=== PATIENT | female | born 1980 | race Caucasian/White ===

== ENCOUNTER 2019-11-02 12:37 | Emergency (ER) | payer BC ==
[2019-11-02 12:58] VITALS: BP 128/82
[2019-11-02 13:04] LABS: ABSOLUTE BASOPHILS # (AUTO) 0.1 10^3/uL (0.0-0.2); ABSOLUTE EOSINOPHILS # (AUTO) 0.2 10^3/uL (0.0-0.6); ABSOLUTE LYMPHOCYTES (AUTO) 2.4 10^3/uL (0.5-4.7); ABSOLUTE MONOCYTES (AUTO) 0.7 10^3/uL (0.1-1.4); ABSOLUTE NEUT (AUTO) 6.1 10^3/uL (1.7-8.2); BASOPHILS % (AUTO) 1.3 % (0-2); EOSINOPHILS % (AUTO) 2.2 % (0-6); HEMATOCRIT 46.3 % (36.0-47.0); HEMOGLOBIN 16.2 g/dL (12.0-15.5); MEAN CORPUSCULAR HEMOGLOBIN 31.2 pg (27.0-33.4); MEAN CORPUSCULAR HGB CONC 34.9 g/dL (32.0-36.0); MEAN CORPUSCULAR VOLUME 90 fl (80-97); MONOCYTES % (AUTO) 7.4 % (3-13); PLATELET COUNT 287 10^3/uL (150-450); RED BLOOD COUNT 5.17 10^6/uL (3.72-5.28); RED CELL DISTRIBUTION WIDTH 13.3 % (11.5-14.0); SEGMENTED NEUTROPHILS % (AUTO) 64.1 % (42-78); TOTAL CELLS COUNTED % (AUTO) 100 %; WHITE BLOOD COUNT 9.6 10^3/uL (4.0-10.5)
[2019-11-02 13:21] LABS: ALBUMIN 4.9 g/dL (3.5-5.0); ALKALINE PHOSPHATASE 65 U/L (38-126); ANION GAP 9 (5-19); ASPARTATE AMINO TRANSFERASE 21 U/L (14-36); BILIRUBIN,TOTAL 0.8 mg/dL (0.2-1.3); BLOOD UREA NITROGEN 15 mg/dL (7-20); CALCIUM 9.6 mg/dL (8.4-10.2); CARBON DIOXIDE 24 mmol/L (22-30); CHLORIDE 105 mmol/L (98-107); GLUCOSE 97 mg/dL (75-110); POTASSIUM 4.5 mmol/L (3.6-5.0); TOTAL PROTEIN 8.1 g/dL (6.3-8.2)
--- NOTE | 2019-11-02 13:28 | RADIOLOGY REPORT (SQ) ---
EXAM DESCRIPTION: CHEST SINGLE VIEW IMAGES COMPLETED DATE/TIME: 11/02/2019 1:08 pm REASON FOR STUDY: Shortness of breath COMPARISON: None. EXAM PARAMETERS: NUMBER OF VIEWS: One view. TECHNIQUE: Single frontal radiographic view of the chest acquired. RADIATION DOSE: NA LIMITATIONS: None. FINDINGS: LUNGS AND PLEURA: No opacities, masses or pneumothorax. No pleural effusion. MEDIASTINUM AND HILAR STRUCTURES: No masses. Contour normal. HEART AND VASCULAR STRUCTURES: Heart normal in size. Normal vasculature. BONES: No acute findings. HARDWARE: None in the chest. OTHER: No other significant finding. IMPRESSION: NO ACUTE RADIOGRAPHIC FINDING IN THE CHEST. TECHNICAL DOCUMENTATION: JOB ID: [id number] 2010 [employer]- All Rights Reserved Reading location - IP/workstation name: [email or web address]
[2019-11-02] MEDS ORDERED: ASPIRIN 81 MG TABLET, CHEWABLE PO ONE (13:36)
--- NOTE | 2019-11-02 13:40 | ER Document Report ---
ED Cardiac - General Chief Complaint: Chest Tightness Stated Complaint: SHORTNESS OF BREATH Time Seen by Provider: 11/02/19 13:06 Primary Care Provider: ANASTASIYA RUIZ MD [ACTIVE PROVISIONAL STAFF] - Follow up in 1 week Mode of Arrival: Ambulatory Information source: Patient Notes: Patient presents complaining of cough for the past week with chest pain off and on. Patient states chest discomfort became constant over the past 3 days. Patient does report shortness of breath. No nausea or vomiting. Patient does report a history of PE after being on the control patch 15 years ago. Patient states that initially she had been placed on blood thinning medication but has not been on them for many years now. Patient states that her is frequently in and out of [facility] and was in contact with people who were from [facility] as well as [place]. Patient states that she has not been around anyone that is a known person under investigation for the coronavirus at this time. Patient states her son did have upper respiratory symptoms recently. - HPI Patient complains to provider of: Chest pain, Shortness of breath Chest pain location: Substernal Quality of pain: Sharp Pain level currently: 3 Cardiac risk factors: denies: Smoker, Dyslipidemia Associated symptoms: Shortness of breath. denies: Back pain, Headache, Lightheaded Exacerbated by: Torso movement Relieved by: Nothing Similar symptoms previously: Yes Recently seen / treated by doctor: No - Related Data Allergies/Adverse Reactions: codeine Adverse Reaction (Verified 11/02/19 12:52) Home Medications: Aspirin 81mg Past Medical History - General Information source: Patient - Social History Smoking Status: Never Smoker Chew tobacco use (# tins/day): No Frequency of alcohol use: Occasional Drug Abuse: None Lives with: Family Family History: Reviewed & Not Pertinent Patient has suicidal ideation: No Patient has homicidal ideation: No - Medical History Medical History: Other - Increased vitamin K - Past Medical History Cardiac Medical History: 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 denies: Fever, Recent illness EENT: No symptoms reported Cardiovascular: Chest pain. denies: Syncope, Dizziness Respiratory: Cough, Short of breath. denies: Wheezing Gastrointestinal: No symptoms reported. denies: Abdominal pain, Nausea, Vomiting Genitourinary: No symptoms reported Female Genitourinary: No symptoms reported Musculoskeletal: No symptoms reported. denies: Back pain Skin: No symptoms reported Hematologic/Lymphatic: No symptoms reported Neurological/Psychological: No symptoms reported Physical Exam - Vital signs Vitals: Pulse Ox 100 11/02/19 12:49 - General General appearance: Appears well, Alert In distress: None - HEENT Head: Normocephalic, Atraumatic Eyes: Normal Conjunctiva: Normal Mouth/Lips: Normal Mucous membranes: Normal Neck: Normal, Supple. No: Lymphadenopathy - Respiratory Respiratory status: No respiratory distress Chest status: Tender Breath sounds: Nonproductive cough. No: Rales, Rhonchi, Stridor, Wheezing Chest palpation: Tender - Mild tenderness to midsternal chest with palpation - Cardiovascular Rhythm: Tachycardia Heart sounds: S1 appreciated, S2 appreciated Murmur: No - Abdominal Inspection: Normal Distension: No distension Bowel sounds: Normal Tenderness: Nontender Organomegaly: No organomegaly - Back Back: Normal, Nontender. No: CVA tenderness - Extremities General upper extremity: Normal inspection, Normal ROM General lower extremity: Normal inspection, Normal ROM - Neurological Neuro grossly intact: Yes Cognition: Normal [place] Coma Scale Eye Opening: Spontaneous [place] Coma Scale Verbal: Oriented [place] Coma Scale Motor: Obeys Commands [place] Coma Scale Total: 15 - Psychological Associated symptoms: Normal affect, Normal mood - Skin Skin Temperature: Warm Skin Moisture: Dry Skin Color: Normal Course - Re-evaluation Re-evalutation: 11/02/19 15:37 Presentation of chest pain in an otherwise well appearing patient. Low clinical suspicion for ACS given clinical history, exam, EKG without ST elevations or depressions, and negative initial troponin. HEART score less than or equal to 3. CTA without any findings worrisome for pneumonia or PE. CXR without evidence of pneumothorax or pneumonia. No widened mediastinum. Patient's heart rate 80, respiratory rate of 18 with oxygen saturation 100% Chest pain in a patient without evidence of cardiac or other serious etiology on workup today. I discussed with patient that, based on their age, risk factors and emergency department testing today, the likelihood that their symptoms are related to a heart attack is very low. The patient demonstrates decision making capacity and has verbalized an understanding of these risks to me. Based on this, the patient has chosen to follow-up as an outpatient. Usual chest pain return precautions reviewed. The patient states understanding and agreement with this plan. 11/02/19 15:[address] Butcher who reviewed diagnostic evaluation including EKG. Agrees with discharge plan of care at this time 11/02/19 15:39 The patient was evaluated during the global Covid 19 pandemic, and that diagnosis was suspected/considered upon their initial presentation. Their evaluation, treatment and testing was consistent with current guidelines for patients who present with complaints or symptoms that may be related to Covid 19. 11/02/19 15:53 - Vital Signs Vital signs: Temp Pulse Resp BP Pulse Ox 101 H 20 128/82 H 98 11/02/19 12:52 11/02/19 12:52 11/02/19 12:52 11/02/19 12:52 - Laboratory Result Diagrams: 11/02/19 12:45 11/02/19 12:45 Laboratory results interpreted by me: 11/02/19 11/02/19 12:45 12:45 Hgb 16.2 H D-Dimer 0.56 H 11/02/19 15:37 Labs- Entire Visit 11/02/19 11/02/19 11/02/19 12:45 12:45 12:45 WBC 9.6 RBC 5.17 Hgb 16.2 H Hct 46.3 MCV 90 MCH 31.2 MCHC 34.9 RDW 13.3 Plt Count 287 Lymph % (Auto) 25.0 [place] % (Auto) 7.4 Eos % (Auto) 2.2 Baso % (Auto) 1.3 Absolute Neuts (auto) 6.1 Absolute Lymphs (auto) 2.4 Absolute Monos (auto) 0.7 Absolute Eos (auto) 0.2 Absolute Basos (auto) 0.1 Seg Neutrophils % 64.1 D-Dimer 0.56 H Sodium 137.7 Potassium 4.5 Chloride 105 Carbon Dioxide 24 Anion Gap 9 BUN 15 Creatinine 0.76 Est GFR ( Amer) > 60 Est GFR (MDRD) Non-Af > 60 Glucose 97 Calcium 9.6 Total Bilirubin 0.8 Direct Bilirubin 0.0 Neonat Total Bilirubin Not Reportable Neonat Direct Bilirubin Not Reportable Neonat Indirect Bili Not Reportable AST 21 ALT 14 Alkaline Phosphatase 65 Troponin I Total Protein 8.1 Albumin 4.9 Influenza A (Rapid) Influenza B (Rapid) Group A Strep Rapid 0411/02/19 11/02/19 12:45 13:41 13:41 WBC RBC Hgb Hct MCV MCH MCHC RDW Plt Count Lymph % (Auto) [place] % (Auto) Eos % (Auto) Baso % (Auto) Absolute Neuts (auto) Absolute Lymphs (auto) Absolute Monos (auto) Absolute Eos (auto) Absolute Basos (auto) Seg Neutrophils % D-Dimer Sodium Potassium Chloride Carbon Dioxide Anion Gap BUN Creatinine Est GFR ( Amer) Est GFR (MDRD) Non-Af Glucose Calcium Total Bilirubin Direct Bilirubin Neonat Total Bilirubin Neonat Direct Bilirubin Neonat Indirect Bili AST ALT Alkaline Phosphatase Troponin I < 0.012 Total Protein Albumin Influenza A (Rapid) NEGATIVE Influenza B (Rapid) NEGATIVE Group A Strep Rapid NEGATIVE - Diagnostic Test Radiology reviewed: Reports reviewed - EKG Interpretation by Me EKG shows normal: Sinus rhythm Rate: Normal Additional EKG results interpreted by me: 11/02/19 15:[address] elevation, QTc 428 Discharge - Discharge Clinical Impression: Upper respiratory infection Qualifiers: URI type: unspecified URI Qualified Code(s): J06.9 - Acute upper respiratory infection, unspecified Chest pain Qualifiers: Chest pain type: unspecified Qualified Code(s): R07.9 - Chest pain, unspecified Condition: Stable Disposition: HOME, SELF-CARE Instructions: Chest Pain of Unclear Cause ([facility]), Upper Respiratory Illness ([facility]) Additional Instructions: Return immediately for any new or worsening symptoms Followup with your primary care provider, call tomorrow to make a followup appointment Follow-up with cover cutter on outpatient basis for recheck, call Monday to make a follow-up appointment Prescriptions: Dextromethorphan Polistirex [Delsym] 60 mg PO Q12 PRN #120 ml PRN Reason: Naproxen [Naprosyn 250 Nmg Tablet] 1 tab PO BID #14 tablet Referrals: ANASTASIYA RUIZ MD [ACTIVE PROVISIONAL STAFF] - Follow up in 1 week
[2019-11-02 14:20] LABS: A TYPE INFLUENZA AG NEGATIVE (NEGATIVE); B INFLUENZA AG NEGATIVE (NEGATIVE)
--- NOTE | 2019-11-02 15:26 | RADIOLOGY REPORT (SQ) ---
EXAM DESCRIPTION: CTA CHEST IMAGES COMPLETED DATE/TIME: 11/02/2019 3:12 pm REASON FOR STUDY: cp, sob, elevated dimer COMPARISON: None. TECHNIQUE: CT scan of the chest performed using helical scanning technique with dynamic intravenous contrast injection. Images reviewed with lung, soft tissue and bone windows. Reconstructed coronal and sagittal MPR images reviewed. Additional 3 dimensional post-processing performed to develop Maximal Intensity Projection images (LA P). All images stored on PACS. All CT scanners at this facility use dose modulation, iterative reconstruction, and/or weight based d osing when appropriate to reduce radiation dose to as low as reasonably achievable (ALARA). [facility]: Dose Right [facility]: CareDose [facility]: Dose Right [facility]: Teradose 4D [facility]: [employer] [place] CONTRAST TYPE AND DOSE: contrast/concentration: Isovue 350.00 mg/ml; Total Contrast Delivered: 50.0 ml; Total Saline Delivered: 75.0 ml Contrast bolus adequate for pulmonary arteries and aorta. RENAL FUNCTION: None required. The patient is less than 50 years old. RADIATION DOSE: CT Rad equipment meets quality standard of care and radiation dose reduction techniq ues were employed. CTDIvol: 3.3 - 14.3 mGy. DLP: 500 mGy-cm. . LIMITATIONS: None. FINDINGS: LUNGS AND PLEURA: No masses, infiltrates, or pneumothorax. No pleural effusions or pleura l calcifications. AORTA AND GREAT VESSELS: No aneurysm. No dissection. HEART: No pericardial effusion. No significant coronary artery calcifications. PULMONARY ARTERIES: No emboli visualized in the main pulmonary arteries or the segmental branches. HILAR AND MEDIASTINAL STRUCTURES: No identified masses or abnormal nodes. HARDWARE: None in the chest. UPPER ABDOMEN: No significant findings. Limited exam. THYROID AND OTHER SOFT TISSUES: No masses. No adenopathy. BONES: No acute or significant finding. 3D MIPS: Confirm above findings. OTHER: No other significant finding. IMPRESSION: NORMAL CTA OF THE CHEST. NO PULMONARY EMBOLI. COMMENT: Quality ID # [id number]: Final reports with documentation of one or more dose reduction techniques (e.g., Automated exposure control, adjustment of the mA and/or kV according to patient size, use of iterative reconstruction technique) TECHNICAL DOCUMENTATION: JOB ID: [id number] 2010 [employer]- All Rights Reserved Reading location - IP/workstation name: [email or web address]
--- NOTE | 2019-11-03 22:31 | EKG REPORT ---
SEVERITY:- NORMAL ECG - SINUS RHYTHM : Confirmed by: Rosalba Earl MD 03-Nov-2019 22:30:24
== END 2019-11-02 16:00 | disposition home or self-care (01) ==
LOC: ER 12:37
DX: R07.2 Precordial pain (principal); J06.9 Acute upper respiratory infection, unspecified; R05 Cough; R06.02 Shortness of breath; Z86.711 Personal history of pulmonary embolism; Z86.718 Personal history of other venous thrombosis and embolism; Z79.82 Long term (current) use of aspirin
CPT/HCPCS: 36415; 71045; 71275; 80053; 84484; 85025; 85379; 87070; 87804; 87880; 93005; 93010; 99284

== ENCOUNTER → 2019-11-18 | Outpatient (CLI) | payer BC ==
--- NOTE | 2019-11-18 12:37 | ER RDC ASSESSMENT REPORT ---
Intake - In the Last 14 days Have you traveled outside [place]?: No Have you been in close contact with someone CONFIRMED: No Worked in Healthcare?: No - Symptoms Subjective Fever([place]chola feverish): Yes Chills: Yes Muscule Aches: Yes Runny Nose: No Sore Throat: Yes Cough (New or worsening chronic cough): Yes Shortness of breath: Yes Nausea or Vomiting: No Headache: Yes Abdominal Pain: No Diarrhea(3 or more loose stools in last 24 hours): No - Do you have any of the following Chronic lung disease: Asthma or emphysema or COPD: No Cystic Fibrosis: No Diabetes: No High Blood Pressure: No Cardiovascular Disease: No Chronic Kidney Disease: No Chronic Liver Disease: No Chronic blood disorder like Sickle Cell Disease: Yes Chronic Blood Disorder Comment: history blood clots 2003 Weak immune system due to disease or medication: Yes Immune System Comment: lupus Neurologic condition that limits movement: No Developmental delay - Moderate to Severe: No Recent (within past 2 weeks) or current : No - Objective Temperature: 97.6 F Pulse Rate: 101 Respiratory Rate: 16 Blood Pressure: 126/84 O2 Sat by Pulse Oximetry: 99 Objective: Given above, testing performed: Flu A/B, strep both negative CPVOD 19 sent to [facility] If Testing Performed: Test Specimen Type Sent to Disposition: Home; Selfcare General - General Chief Complaint: Shortness Of Breath Time Seen by Provider: 11/18/19 12:30 Mode of Arrival: Ambulatory Information source: Patient - HPI Notes: 39-year-old female presents to [facility] clinic for COVID-19 testing. Patient states onset of symptoms was around July 31-2019. She reports that she went to [facility] ED on 11/02/2019 for work-up of shortness of breath and chest pain. Per patient report chest x-ray, EKG, CTA, and labs were all completed in light of PE history but all found to be negative to her knowledge. Patient states she was sent home with home O2 as her sats were only sitting around 85% when she left the ER. Today, patient reports continued chest pressure when coughing, shortness of breath primarily with exertion but occasionally at rest, fevers to the low 100s, chills, myalgia, sore throat, dry cough, headache, and more recently over the past couple of days onset of loss of taste. No known exposure to confirmed COVID-19 case although spouse does work as an essential employee with [employer]. Patient states she does have a follow-up appointment scheduled with cardiology November 25 that she can attend as long as COVID-19 is negative. - Related Data Allergies/Adverse Reactions: codeine Adverse Reaction (Verified 11/02/19 12:52) Past Medical History - General Information source: Patient - Social History Smoking Status: Never Smoker Family History: Reviewed & Not Pertinent - Past Medical History Cardiac Medical History: Reports: Hx DVT, Hx Pulmonary Embolism Pulmonary Medical History: Reports: None Denies: Hx Asthma, Hx COPD EENT Medical History: Reports: None Neurological Medical History: Reports: None Endocrine Medical History: Reports: None Renal/ Medical History: Reports: None Malignancy Medical History: Reports: None GI Medical History: Reports: None Musculoskeletal Medical History: Reports None Skin Medical History: Reports None Psychiatric Medical History: Reports: None Traumatic Medical History: Reports: None Infectious Medical History: Reports: None Past Surgical History: Reports: Hx Oral Surgery Physical Exam - Vital signs Interpretation: Normal - General General appearance: Appears well In distress: None Notes: PHYSICAL EXAMINATION: GENERAL: Well-appearing and in no acute distress. HEAD: Atraumatic, normocephalic. EYES: sclera anicteric, conjunctiva are normal. ENT: nares patent. Moist mucous membranes. NECK: Normal range of motion, supple without lymphadenopathy LUNGS: CTAB and equal. No wheezes rales or rhonchi. HEART: Regular rate and rhythm without murmurs ABDOMEN: Soft, nontender, normal bowel sounds, no guarding. EXTREMITIES: Normal range of motion, no pitting edema. No cyanosis. NEUROLOGICAL: Cranial nerves grossly intact. Normal speech. PSYCH: Normal mood, normal affect. SKIN: Warm, Dry, normal turgor, no rashes or lesions noted Patient Education/Counseling Counseling/Education: Patient presents with upper respiratory symptoms worrisome for possible Covid 19. Patient does not have emergency worrying symptoms such as difficulty breathing, shortness of breath, chest pain, pressure, confusion or cyanosis. Patient appears suitable for discharge as patient's vital signs are stable and patient is nontoxic in appearance. Good return precautions have been discussed with patient, patient verbalized understanding and is agreeable with discharge plan of care at this time. Guidance for worsening S/SX: As a person under investigation for Covid 19, the [facility] of Health and Human Services, division of public health advises you to adhere to the following guidance until your test results are reported to you. If your test result is positive, you will receive additional information from your provider and your local health department at that time. Remain at home until you are cleared by the health provider or public health authorities. Keep a log of visitors to your home, notify any visitors to your home of your isolation status. If you plan to move to a new address or leave the county, notify the local health department in your County. Call your doctor or seek care if you have an urgent medical need. Before seeking medical care, call ahead to get instructions from the provider before arriving at the medical office clinic or hospital. Notify them that you are being tested for the virus that causes Covid 19 so that arrangements can be made, as necessary, to prevent transmission to others in the healthcare setting. Next, notify the local health department in your county. If a medical emergency arises and you need to call 911, inform the first responders that you are being tested for the virus that causes Covid 19. Next, notify the local health department in your county. RDC Discharge - Discharge Clinical Impression: COVID 19 screen URI (upper respiratory infection) Qualifiers: Pharyngitis/tonsillitis etiology: unspecified etiology Condition: Stable Disposition: Home; Selfcare
[2019-11-18 12:48] VITALS: BP 126/84
[2019-11-18 13:27] LABS: A TYPE INFLUENZA AG NEGATIVE (NEGATIVE)
[2019-11-18 13:28] LABS: B INFLUENZA AG NEGATIVE (NEGATIVE)
== END ==
LOC: RDC 12:00
PROVIDERS: ATTEND Registered Nurse
DX: J06.9 Acute upper respiratory infection, unspecified (principal); Z20.828 Contact with and (suspected) exposure to other viral communicable diseases; R06.02 Shortness of breath; R50.9 Fever, unspecified; J02.9 Acute pharyngitis, unspecified; R05 Cough; R51 Headache; Z88.8 Allergy status to other drugs, medicaments and biological substances; Z86.711 Personal history of pulmonary embolism; Z86.718 Personal history of other venous thrombosis and embolism
CPT/HCPCS: 87070; 87635; 87804; 87880; 99211